=== PATIENT | male | born 1960 | race Caucasian/White ===

== ENCOUNTER 2025-06-08 22:17 | Emergency (ER) | payer BC, SELFPAY ==
--- OUTSIDE RECORDS SUMMARY | 2025-06-08 22:19 | XMS_ITS | Clinical Summary ---
Author Organization I AM AT [facility] Address [address] [place] [address] Care Team Providers Care Trade Embalmer Name Role Phone Jose Harkins MD Primary Care Provider +1 [phone] Allergies No known active allergies Medications CPAPIndications: JEF (obstructive sleep apnea) RESMED CPAP (E0601) machine for home use at pressure: 5-15cmw, Choice of mask (A7030 or A7034) w/full face cushion (A7031) x1/mo, nasal cushion (A7032) x2/mo, or nasal pillows (A7033) x 2/mo; Length of Need: 99 months; Frequency of use: Daily 1 Each 11 4 Active triamcinolone (ARISTOCORT; KENALOG) 0.1 % creamIndications :Eczema, unspecified type Apply topically to affected area(s) two times daily. 80 g 2 4 Active sildenafiL, pulm.hypertensio n, (REVATIO) 20 mg tabletIndication s:Other male erectile dysfunction Take 1-5 Tablets (20-100 mg) by mouth once daily if needed (sex). Take 30 minutes to 4 hours before sexual activity. Max 100mg/24hr. 30 Tablet 5 5 Active Active Problems Problem Noted Date Diagnosed Date Other male erectile dysfunction 09/28/2024 Overview (09/28/2024): September 2024: new diagnosis, started on Sildenafil (generic Viagra) Skin cancer 07/06/2023 Overview (11/08/2024): 08/08/24: left shoulder, basal cell carcinoma, ED&C 11/08/24 Dr. 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 Overview (07/02/2008): small inferior w/o holes/tears Obesity, unspecified 07/12/2006 SINUSITIS - ACUTE 09/21/2005 WARTS 02/01/2005 ABNORMAL BLOOD CHEMISTRY NEC 05/24/2001 EXAMINATION, ROUTINE MEDICAL 05/05/2000 ROTATOR CUFF SPRAIN 05/05/2000 Resolved Problems Problem Noted Date Diagnosed Date Resolved Date BRONCHITIS - ACUTE 09/21/2005 7 Encounters Date Type Department Care Team Description 05/02/2025 Telephone [facility] [address] [place] [address] Shade Musa MD Questions (C-pap) from Last 3 Months Immunizations Immunization Administration Dates Next Due HepA-HepB (Twinrix) 04/06/2016 Hepatitis A (Adult) 02/18/2010 Anguillan Encephalitis 04/06/2016 Tdap 04/06/2016,07/12/2006 Typhoid (injectable) 02/18/2010 Family History Medical History Relation Name Comments Hypertension Brother Danny Age 80 Arthritis Father Damon Fernandez Heart Disease Father Damon Fernandez CHF lived t o 98. Hypertension Father Damon Fernandez Lived to98 Cancer-breast Mother Alia Fernandez of br east cancer at 77 Hypertension Mother Alia Fernandez Genetic Other Mother Breast Ca~CUA-ipsjfzd-rsvsvhn~Some uncle and aunts w DM~Father ?prostate disease (not sure if CA) Cancer-breast Sister 1 Francie Spencer Age 89 gas dad breast cancer 2X Valvular heart disease Sister 2 Bicus bid valve. Cancer-breast Sister 3 Lina Motta Has had breas t cancer Relation Name Status Comments Brother Danny Father Damon Fernandez Mother Alia Fernandez Other Sister 1 Francie Spencer Sister 2 Sister 3 Lina Motta Social History Tobacco Use Types Packs/Day Years Used Date Smoking Tobacco: Never Smokeless Tobacco: Never Tobacco Cessation:Counseling Given: Not Answered Alcohol Use Standard Drinks/Week Comments Never 0 (1 standard drink = 0.6 oz pur e alcohol) PHQ-2 Answer Date Recorded PHQ-2 TOTAL SCORE 0 05/30/2024 Social Connections Answer Date Recorded Do you often feel lonely or isolated from those around you? 0 05/30/2024 Financial Resource Strain Answer Date R ecorded Difficulty of Paying Living Expenses 3 05/30/2024 Difficulty of Paying Living Expenses Not on file 05/30/2024 Food Insecurity Answer Date Recorded Do you worry your food will run out before you are able to buy more? 1 05/30/2024 Transportation Needs Answer Date Record ed Does lack of transportation keep you from medica l appointments? 1 05/30/2024 Does lack of transportation keep you from work, meetings or getting things that you need? 1 05/30/2024 Housing Stability Answer Date Recorded What is your housing situation today? 1 05/30/2024 Utilities Answer Date Recorded Do you have trouble paying f or utilities (for example, heat, electricity, water, phone)? 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 Gender Identity Not on file Sexual Orientation Not on file Occupation Industry Job Start Date Job End Date Teacher Not on file Not on file Not on file Obstetrics History Last Filed Vital Signs Vital Sign Reading Time Taken Comments Blood Pressure 133/79 09/26/2024 6:58 AM ROLLOFF TRUCK DRIVER Pulse 56 09/26/2024 6:58 AM ROLLOFF TRUCK DRIVER Temperature 36.6 C (97.8 F) 11/05/2018 4:36 PM CDT Respiratory Rate 14 07/25/2023 5:03 PM ROLLOFF TRUCK DRIVER Oxygen Saturation 99% 09/26/2024 6:58 AM ROLLOFF TRUCK DRIVER Inhaled Oxygen Concentration - - Weight 121.2 kg (267 lb 3.2 oz) 09/26/2024 6:58 AM ROLLOFF TRUCK DRIVER Height 193 cm (6' 4) 07/30/2024 8:32 AM ROLLOFF TRUCK DRIVER Body Mass Index 32.52 07/30/2024 8:32 AM ROLLOFF TRUCK DRIVER Plan of Treatment Upcoming Encounters Date Type Department Care Team (Late st Contact Info) Description 08/11/2025 11:20 AM ROLLOFF TRUCK DRIVER Office Visit [facility] [address] [place], [place] [phone] Jazmín Damico MD [address] [place], [place] [phone] 09/04/2025 9:00 AM ROLLOFF TRUCK DRIVER Office Visit [facility] [address] [place] [address] Shade Musa MD [address] [place] [address] Health Maintenance Due Date Last Done Comments Pneumococcal series for age 50+ (1 of 1 - PCV) 2010 Zoster (shingles) series for age 50+ (1 of 2) 2010 Hepatitis B series for 19+ (2 of 3 - Hep B Twinrix 3-dose series) 05/04/2016 04/06/2016 COVID-19 vaccine series ( season) 2025 07/27/2021, 12/16/2020, 11/18/2020 Influenza Vaccine (#1) 2025 Depression screening for age 12+ 05/30/2025 05/30/2024, 05/08/2023, 02/07/2022, Additional history exists BMI (ht and wt on same day) for age 18+ 07/30/2025 07/30/2024, 05/30/2024, 06/14/2023, Additional history exists Tetanus booster 04/06/2026 04/06/2016, 07/12/2006 HIV for age 15-65 05/20/2026 Postponed from 1975 (Patient discretion) Lipids for age 45-75 05/30/2029 05/30/2024, 05/08/2023, 02/24/2022, Additional history exists Colonoscopy through age 75 07/25/203307/25, 07/25/2023, 07/25/2023, Additional history exists RSV vaccine for adults or (1 - 1-dose 75+ series) 2035 Hepatitis C screening for age 18-79 Completed 06/19/2015 Procedures Procedure Name Priority Date/Time Associated Diagnosis Comments LIPID PANEL W REFLEX MEASURED LDL Routine 05/30/2024 7:46 AM CDT Screening cholesterol level COLONOSCOPY SCREENING Routine 07/25/2023 2:26 PM ROLLOFF TRUCK DRIVER Screen for colon cancer ANTI HCV Routine 06/19/2015 11:34 AM CDT Need for hepatitis C screening test from Last 3 Months or Most Recently Relevant to Health Maintenance Results * (ABNORMAL) LIPID PANEL W REFLEX MEASURED LDL (05/30/2024 7:46 AM CDT) CHOLESTEROL, TOTAL 183 <200 mg/dL [facility] HDL CHOLESTEROL 64 > OR = 40 mg/dL [facility] TRIGLYCERIDES 71 <150 mg/dL [facility] LDL-CHOLESTEROL 103(H) mg/dL (calc) [facility] Comment: Reference range: <100 Desirable range <100 mg/dL for primary prevention; <70 mg/dL for patients with CHD or diabetic patients with > or = 2 CHD risk factors. LDL-C is now calculated using the Gilbert-Zachary calculation, which is a validated novel method providing better accuracy than the Friedewald equation in the estimation of LDL-C. Gilbert SS et al. JESUS. 2013;310(19): 4882-1210 (http://education.[employer]/faq/PNU400) CHOL/HDLC RATIO 2.9 <5.0 (calc) [facility] NON HDL CHOLESTEROL 119 <130 mg/dL (calc) [facility] Comment: For patients with diabetes plus 1 major ASCVD risk factor, treating to a non-HDL-C goal of <100 mg/dL (LDL-C of <70 mg/dL) is considered a therapeutic option. Blood BLOOD SPECIMEN / Unknown 05/30/2024 7:46 AM CDT 05/30/2024 7:46 AM CDT Jose Harkins MD CHEMISTRY Final Res ult [facility] [address] [place] [address], [facility] [address] [place] [address] * COLONOSCOPY (07/25/2023 3:39 PM ROLLOFF TRUCK DRIVER) 07/25/2023 3:39 PM ROLLOFF TRUCK DRIVER Narrative Transcriptions Gilbert Kelsey MD - 07/25/2023 4:49 PM CST Patient Name: Radhames Fernandez Procedure Date: 07/25/2023 Gender: Male Date of : 1960 Admit Type: Outpatient Procedure: Colonoscopy Proceduralist: Gilbert Kelsey MD , Linda Bergman (Nurse), Mayra Young (Nurse) Referring MD: Jose Harkins Indications/Pre-Op Diagnosis: Screening for colorectal malignant neoplasm, Last colonoscopy: October 2010 Medications: Fentanyl 100 micrograms IV, Midazolam 4 mgIV, The level of sedation administered wasmoderate Procedure Description: The patient had risks, benefits and alternatives explained to andgave informed consent. The patient had a stable cardiopulmonary status and judged an adequate candidate for conscious sedation. The endoscope [id number] was passed through the anus andadvanced to the cecum, identified by appendiceal orifice and ileocecal valve.The colonoscopy was performed without difficulty. The patient toleratedthe procedure well. The quality of the bowel preparation was good. The ileocecal valve, appendiceal orifice, and rectum were photographed. Complications: No immediate complications. Estimated Blood Loss & Specimen: Estimated blood loss: none. Specimen collected - None Findings: The perianal and digital rectal examinations were normal. The entire examined colon appeared normal. Impressions/Post-Op Diagnosis: - The entire examined colon is normal. - No specimens collected. Recommendation: - Patient has a contact number available for emergencies. The signsand symptoms of potential delayed complications were discussed with the patient. Return to normal activities tomorrow. Written discharge instructions were provided to the patient. - Resume previous diet. - Continue present medications. - Repeat colonoscopy in 10 years for screening purposes. Moderate Sedation: A time out was performed before the procedure. Moderate (conscious) sedation was administered by the endoscopy nurse and supervised bythe endoscopist. The following parameters were monitored: oxygensaturation, heart rate, blood pressure, EKG, CO2, respiratory rate, adequacy of pulmonary ventilation and reponse to care. Please refer to the patient's medical record flowsheets and nursing notes for moderate sedation details. Total physician intraservice time was 15 minutes. Gilbert Kelsey MD 07/25/2023 4:49:49 PM This report has been signed electronically. Note Initiated On: 07/25/2023 3:39 PM Procedure Code(s): --- Professional --- 49730, Colonoscopy, flexible; diagnostic, including collection of specimen(s) bybrushing or washing, when performed (separateprocedure) CPT copyright 2021 [employer]. All rights reserved. The codes documented in this report are preliminary and upon turn supervisor reviewmay be revised to meet current compliance requirements. Scope In: 4:30:15 PM Scope Withdrawal Time 0 hours 9 minutes 33 seconds Scope Out: 4:43:44 PM us Gilbert Kelsey MD PROCEDURE ORD Final Res ult * ANTI HCV [35730.2] (06/19/2015 11:34 AM CDT) HEPATITIS C ANTIBODY Non-Reacti ve Non-Reacti ve 06/19/2015 7:40 PM CDT [facility] Blood specimen (specimen) BLOOD SPECIMEN / Unknown Venipuncture / Unknown 06/19/2015 11:34 AM CDT 06/19/2015 11:34 AM CDT Narrative [facility] - 06/19/2015 7:40 PM CDT Antibodies to HCV not detected; does not exclude the possibility of exposure to HCV. us Jose Harkins MD SEND OUTS Final Res ult [facility] [address] [place] [address], from Last 3 Months or Most Recently Relevant to Health Maintenance Insurance [facility] ADVANTAGE [place] [place] [employer] Care Teams Trade Embalmer Relationship Specialty Start Date End Date Jose Harkins [place] [address] PCP - General Family Practice 02/06/23
[2025-06-08 22:25] VITALS: BP 130/82; PULSE 68; RESP 16; TEMP 36.8; O2SAT 97; BMI 31.6
[2025-06-08 23:15] LABS: PCR FLU A Negative PCR FLU A (Negative); PCR FLU B Negative PCR FLU B (Negative); PCR RSV Negative PCR RSV (Negative); SARS PCR* Negative SARS-CoV-2 (Negative)
--- OUTSIDE RECORDS SUMMARY | 2025-06-09 00:21 | XMS_ITS | Clinical Summary ---
Author Organization [facility] Address [address] [place] [address] Care Team Providers Care Principal Hardware Architect Name Role Phone Jose Harkins MD Primary Care Provider +1 [phone] Allergies No known active allergies Medications CPAPIndications: [...] Type Department Care Team Description 05/02/2025 Telephone [facility] [address] [place] [address] Shade Musa MD Questions (C-pap) from Last 3 Months Immunizations Immunization Administration Dates Next Due HepA-HepB (Twinrix) 04/06/2016 Hepatitis A (Adult) 02/18/2010 American Encephalitis 04/06/2016 Tdap 04/06/2016,07/12/2006 Typhoid (injectable) 02/18/2010 Family History Medical History Relation Name Comments Hypertension Brother Danny Age 80 Arthritis Father Damon Fernandez Heart Disease Father Damon Fernandez CHF lived t o 98. 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 Gender Identity Not on file Sexual Orientation Not on file Occupation Industry Job Start Date Job End Date Teacher Not on file Not on file Not on file Obstetrics History Last Filed Vital Signs Vital Sign Reading Time Taken Comments Blood Pressure 133/79 09/26/2024 6:58 AM VEGETABLE WORKER Pulse 56 09/26/2024 6:58 AM VEGETABLE WORKER Temperature 36.6 C (97.8 F) 11/05/2018 4:36 PM CDT Respiratory Rate 14 07/25/2023 5:03 PM VEGETABLE WORKER Oxygen Saturation 99% 09/26/2024 6:58 AM VEGETABLE WORKER Inhaled Oxygen Concentration - - Weight 121.2 kg (267 lb 3.2 oz) 09/26/2024 6:58 AM VEGETABLE WORKER Height 193 cm (6' 4) 07/30/2024 8:32 AM VEGETABLE WORKER Body Mass Index 32.52 07/30/2024 8:32 AM VEGETABLE WORKER Plan of Treatment Upcoming Encounters Date Type Department Care Team (Late st Contact Info) Description 08/11/2025 11:20 AM VEGETABLE WORKER Office Visit [facility] [address] [place], [place] [phone] Jazmín Damico MD [address] [place], [place] [phone] 09/04/2025 9:00 AM VEGETABLE WORKER Office Visit [facility] [address] [place] [address] Shade Musa MD [address] [place] [address] Health Maintenance Due Date Last Done Comments [...] level COLONOSCOPY SCREENING Routine 07/25/2023 2:26 PM VEGETABLE WORKER Screen for colon cancer ANTI HCV Routine 06/19/2015 11:34 AM CDT Need for hepatitis C screening test from Last 3 Months or Most Recently Relevant to Health Maintenance Results * (ABNORMAL) LIPID PANEL W REFLEX MEASURED LDL (05/30/2024 7:46 AM CDT) CHOLESTEROL, TOTAL 183 <200 mg/dL [facility] HDL CHOLESTEROL 64 > OR = 40 mg/dL [facility] TRIGLYCERIDES 71 <150 mg/dL [facility] LDL-CHOLESTEROL 103(H) mg/dL (calc) [facility] Comment: Reference range: <100 Desirable range <100 mg/dL for primary prevention; <70 mg/dL for patients with CHD or diabetic patients with > or = 2 CHD risk factors. LDL-C is now calculated using the Gilbert-Zachary calculation, which is a validated novel method providing better accuracy than the Friedewald equation in the estimation of LDL-C. Gilbert SS et al. JESUS. 2013;310(19): 5961-4149 (http://education.[employer]/faq/QPC232) CHOL/HDLC RATIO 2.9 <5.0 (calc) [facility] NON HDL CHOLESTEROL 119 <130 mg/dL (calc) [facility] Comment: For patients with diabetes plus 1 major ASCVD risk factor, treating to a non-HDL-C goal of <100 mg/dL (LDL-C of <70 mg/dL) is considered a therapeutic option. Blood BLOOD SPECIMEN / Unknown 05/30/2024 7:46 AM CDT 05/30/2024 7:46 AM CDT Jose Harkins MD CHEMISTRY Final Res ult [facility] [address] [place] [address], [facility] [address] [place] [address] * COLONOSCOPY (07/25/2023 3:39 PM VEGETABLE WORKER) 07/25/2023 3:39 PM VEGETABLE WORKER Narrative Transcriptions Gilbert Kelsey MD - 07/25/2023 [...] adequate candidate for conscious sedation. The endoscope [id number] was passed through the anus andadvanced to [...] 3:39 PM Procedure Code(s): --- Professional --- 61214, Colonoscopy, flexible; diagnostic, including collection of specimen(s) bybrushing or washing, when performed (separateprocedure) CPT copyright 2021 [employer]. All rights reserved. The codes documented in this report are preliminary and upon acoustical logging engineer reviewmay be revised to meet current compliance requirements. Scope In: 4:30:15 PM Scope Withdrawal Time 0 hours 9 minutes 33 seconds Scope Out: 4:43:44 PM us Gilbert Kelsey MD PROCEDURE ORD Final Res ult * ANTI HCV [03836.2] (06/19/2015 11:34 AM CDT) HEPATITIS C ANTIBODY Non-Reacti ve Non-Reacti ve 06/19/2015 7:40 PM CDT [facility] Blood specimen (specimen) BLOOD SPECIMEN / Unknown Venipuncture / Unknown 06/19/2015 11:34 AM CDT 06/19/2015 11:34 AM CDT Narrative [facility] - 06/19/2015 7:40 PM CDT Antibodies to HCV not detected; does not exclude the possibility of exposure to HCV. us Jose Harkins MD SEND OUTS Final Res ult [facility] [address] [place] [address], from Last 3 Months or Most Recently Relevant to Health Maintenance Insurance [facility]VANT[employer] [place] [employer] Care Teams Principal Hardware Architect Relationship Specialty Start Date End Date Jose Harkins [place] [address] PCP - General Family Practice 02/06/23
--- NOTE | 2025-06-09 00:29 | ED.NAVMDI ---
HPI - Nausea/Vomiting/Diarrhea General Date Seen: 06/09/25 Chief complaint: Diarrhea Stated complaint: diarrhea for 4 days Time Seen by Provider: 06/08/25 23:14 Source: patient, family, RN notes reviewed and old records reviewed Mode of arrival: ambulatory Limitations: no limitations History of Present Illness HPI Narrative: Patient is a very nice 65-year-old gentleman who presents here with 4 days of diarrhea, 7 day loose stools per day with no blood, he has had no fevers with a temperature up to 99, he has some overall distention of his abdomen but no abdominal pain, he has had no nausea vomiting min trying to follow the brat diet he did use Pepto-Bismol for 1 day. But a bandage as in seem to make a change in his stools. They did call a family member who is a physician cali and they told him that 4 days is all that they suggest for diarrhea and he should get evaluated in the emergency room. Denies any recent travel history, no other people are sick, he does have a bit of a cough he says with this also. Not had any shortness of breath and he is not coughing anything up. No recent antibiotic use in the last 3 months. MD elicited complaint: diarrhea Description of diarrhea: semi-solid Associated nausea: No Associated abdominal pain: No Location of pain: none and other Related Data Home Medications ?Medication ?Instructions ?Recorded ?Confirmed No Known Home Medications 06/08/25 06/08/25 Allergies Allergy/AdvReac Type Severity Reaction Status Date / Time No Known Drug Allergies Allergy Verified 06/08/25 22:29 Review of Systems Status of ROS: Reports: 10 or more systems reviewed and unremarkable except as noted in History and below GI: Denies: nausea PFSH PFSH Social History Non-prescribed substance use: denies use Exam Narrative: Exam Narrative: On examination in room 7 he is in absolutely no distress very nice gentleman here with his . Vital signs are all stable nontoxic pupils equal round reactive to light there is no scleral icterus redness is TMs are normal oropharynx normal there is no adenopathy anterior posterior chains neck is supple full range of motion chest is good air entry bilateral with no wheezing crackles noted heart sounds are normal his abdomen is entirely benign there is no tenderness to palpation bowel sounds are notable throat, no masses noted skin reveals no petechiae rashes he does have a bit of a protruding umbilical hernia, that is easily reducible. Normal male genitalia, with no inguinal hernias. Const: Vital Signs, click to edit/add: Vital Signs - 24 hr 06/08/25 22:25 Temperature 98.3 F Pulse Rate [Pulse Oximeter] 68 Respiratory Rate 16 Blood Pressure [Ri ght Upper Arm] 130/82 Pulse Oximetry 97 Oxygen Delivery Me thod Room Air Documenting provider has reviewed patient's vital signs: yes Course Vital Signs Vital signs: Initial Vital Signs Temperature 98.3 F 06/08/25 22:25 Temperature Source Temporal Artery Scan 06/08/25 22:25 Pulse Rate 68 06/08/25 22:25 Pulse Rhythm Regular 06/08/25 22:25 Respiratory Rate 16 06/08/25 22:25 Blood Pressure 130/82 06/08/25 22:25 Blood Pressure Mean 98 06/08/25 22:25 Blood Pressure Position Sitting 06/08/25 22:25 Pulse Oximetry 97 06/08/25 22:25 Oxygen Delivery Method Room Air 06/08/25 22:25 Vital Signs Temperature 98.3 F 06/08/25 22:25 Pulse Rate 68 06/08/25 22:25 Respiratory Rate 16 06/08/25 22:25 Blood Pressure 130/82 06/08/25 22:25 Pulse Oximetry 97 06/08/25 22:25 Oxygen Delivery Method Room Air 06/08/25 22:25 Temperature 98.3 F 06/08/25 22:25 Pulse Rate 68 06/08/25 22:25 Respiratory Rate 16 06/08/25 22:25 Blood Pressure 130/82 06/08/25 22:25 Pulse Oximetry 97 06/08/25 22:25 Oxygen Delivery Method Room Air 06/08/25 22:25 MDM - Nausea/Vomiting/Diarrhea MDM Narrative Medical decision making narrative: Differential diagnosis considered include but not limited to viral gastroenteritis, food poisoning, bowel obstruction, Clostridium difficile, Campylobacter, Shigella, rotavirus, medication side effects, dysentery, diverticulitis, Crohn's disease and colitis Medical Records Attestation: I reviewed the patient's medical records. Lab Data Attestation: I reviewed the patient's lab results. Lab results narrative: Stool culture and C diff pending Labs: Lab Results 06/08/25 Range/Units 22:30 SARS-CoV-2 (PCR) Negative SARS-CoV-2 (Negative) Influenza Type A (PCR) Negative PCR FLU A (Negative) Influenza Type B (PCR) Negative PCR FLU B (Negative) RSV (PCR) Negative PCR RSV (Negative) Discharge Plan Discharge Clinical Impression: Diarrhea, Cough Patient Disposition: Home w/ Parent or Adult Condition: Stable Instructions: Acute Diarrhea (ED), Acute Cough (ED) Additional Instructions: Home rest, continue with brat diet, you can also use the Pepto-Bismol, use this t.i.d. as it is agreed treatment. Zofran is great for nausea and actually slowing down your bowel movements also. The meter dose inhaler will help the cough. But if the cough persists, recommend getting an x-ray later in the week. To early next week Activity Level: Light activity Discharge Diet: Clear Liquid Diet Detail: Brat diet Prescriptions: No Action No Known Home Medications Follow Up/Referrals: Jose Da Silva MD [Primary Care Provider, Family Practice] Stand Alone Forms: Snow [employer] Alpsth Info Instructions
[2025-06-09 00:55] LABS: C.Difficile Negative (Negative); CDIFFEPI 027 PRESUMPTIVE NEGATIVE (Negative)
== END 2025-06-09 00:37 | disposition home or self-care (01) ==
PROVIDERS: Emergency Provider Family Medicine; PCP Family Medicine
DX: R19.7 Diarrhea, unspecified (principal); R05.9 Cough, unspecified
CPT/HCPCS: 87045; 87046; 87427; 87493; 87631; 99283